=== PATIENT | male | born 1985 | race Hispanic/Latino ===

== ENCOUNTER 2017-05-10 03:26 | Emergency (ER) | payer OTHER ==
[2017-05-10 03:41] VITALS: BMI 24.4
[2017-05-10 03:45] VITALS: BP 125/71; PULSE 89; RESP 18; TEMP 98.9; O2SAT 99
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
== END 2017-05-10 05:10 | disposition home or self-care (01) ==
LOC: H.ER 03:26
DX: S62.501A Fracture of unspecified phalanx of right thumb, initial encounter for closed fracture (principal); V03.10XA Pedestrian on foot injured in collision with car, pick-up truck or van in traffic accident, initial encounter; Y92.410 Unspecified street and highway as the place of occurrence of the external cause